=== PATIENT | female | born 1980 | race Caucasian/White ===

== ENCOUNTER 2021-03-22 23:41 | Emergency (ER) | payer SELFPAY ==
[2021-03-23 00:47] LABS: HEMOGLOBIN 11.3 gm/dl (12.3-15.3); RED BLOOD COUNT 4.09 M/UL (4.00-5.10); WHITE BLOOD COUNT 11.4 K/UL (4.5-11.0)
[2021-03-23 01:06] LABS: BUN/CREATININE RATIO 14 (0-10)
[2021-03-23] MEDS ORDERED: ZOFRAN4 MG PO (01:37)
[2021-03-23] MEDS ORDERED: TORADOL 10 MG T10 MG PO (01:37)
== END 2021-03-23 01:51 | disposition home or self-care (01) ==
LOC: ER1 23:41
PROVIDERS: Physician Assistant
DX: N13.2 Hydronephrosis with renal and ureteral calculous obstruction (principal); Z87.442 Personal history of urinary calculi; Z90.49 Acquired absence of other specified parts of digestive tract
CPT/HCPCS: 80053; 81001; 85025; 96374; 96375; 99284; J1885; J2405

== ENCOUNTER 2021-03-24 13:02 | Emergency (ER) | payer SELFPAY ==
[~2021-03-24 13:02] MED LIST: TORADOL 10 MG T10 MG PO; ZOFRAN4 MG PO
[2021-03-24 13:49] LABS: HEMOGLOBIN 9.9 gm/dl (12.3-15.3)
[2021-03-24 13:51] LABS: RED BLOOD COUNT 3.63 M/UL (4.00-5.10)
[2021-03-25 00:32] LABS: ACINETOBACTER BAUMANNII Not Detected (Negative); CANDIDA ALBICANS Not Detected (Negative); CANDIDA KRUSEI Not Detected (Negative); CANDIDA TROPICALIS Not Detected (Negative); ENTEROCOCCUS Not Detected (Negative); HAEMOPHILUS INFLUENZAE Not Detected (Negative); KLEBSIELLA OXYTOCA Not Detected (Negative); KLEBSIELLA PNEUMONIAE Not Detected (Negative); KPC-CARBAPENEM-RESISTANCE GENE Not Detected (Negative); PROTEUS Not Detected (Negative); PSEUDOMONAS AERUGINOSA Not Detected (Negative); SERRATIA MARCESANS Not Detected (Negative); STAPHYLOCOCCUS Not Detected (Negative); STAPHYLOCOCCUS AUREUS Not Detected (Negative); STREP AGALACTIAE (GROUP B) Not Detected (Negative); STREP PYOGENES (GROUP A) Not Detected (Negative); STREPTOCOCCUS Not Detected (Negative); mecA (METHICILLIN RESIST GENE Not Detected (Negative); vanA/B (VANCOMYCIN RESIST GENE Not Detected (Negative)
[2021-03-25 01:45] LABS: ESCHERICHIA COLI DETECTED (Negative)
== END 2021-03-24 18:40 | disposition short-term general hospital (02) ==
LOC: ER1 13:02
PROVIDERS: Emergency Medicine
DX: A41.9 Sepsis, unspecified organism (principal); N12 Tubulo-interstitial nephritis, not specified as acute or chronic; N13.2 Hydronephrosis with renal and ureteral calculous obstruction; Z90.49 Acquired absence of other specified parts of digestive tract
CPT/HCPCS: 80053; 81001; 83605; 83690; 85025; 87040; 87077; 87086; 87150; 87186; 93005; 96374; 96375; 96376; 99285; J0696; J2270; J2405; J7030; U0002